=== PATIENT | female | born 1945 | race Caucasian/White ===

== ENCOUNTER 2017-02-26 20:46 | Emergency (ER) | payer OTHER ==
[2017-02-27 01:16] VITALS: BP 147/79
== END 2017-02-27 01:16 | disposition home or self-care (01) ==
LOC: ED 20:46
DX: K08.89 Other specified disorders of teeth and supporting structures (principal); I10 Essential (primary) hypertension; Z79.899 Other long term (current) drug therapy

== ENCOUNTER 2017-08-10 10:13 | Emergency (ER) | payer OTHER ==
[~2017-08-10] VITALS: Ht 152.4 cm; Wt 69.1 kg
[2017-08-10 10:22] VITALS: Ht 152.4 cm; Wt 69.1 kg
[2017-08-10 12:37] VITALS: BP 160/76
== END 2017-08-10 12:37 | disposition home or self-care (01) ==
LOC: ED 10:13
DX: S51.811A Laceration without foreign body of right forearm, initial encounter (principal); S01.01XA Laceration without foreign body of scalp, initial encounter; I10 Essential (primary) hypertension; W10.8XXA Fall (on) (from) other stairs and steps, initial encounter; Y93.89 Activity, other specified; Y99.8 Other external cause status; Y92.89 Other specified places as the place of occurrence of the external cause
CPT/HCPCS: 90715; J2001